=== PATIENT | female | born 1945 | race Caucasian/White ===

== ENCOUNTER → 2016-11-27 | Outpatient (REF) | LOC: ZLAB.WCH 11:18 | DX: Z01.89 Encounter for other specified special examinations (principal) ==

== ENCOUNTER → 2016-12-06 | Outpatient (REF) | LOC: ZLAB.WCH 15:16 | DX: Z01.89 Encounter for other specified special examinations (principal) ==

== ENCOUNTER → 2017-02-05 | Outpatient (REF) | LOC: ZLAB.WCH 14:52 | DX: Z01.89 Encounter for other specified special examinations (principal) ==

== ENCOUNTER → 2017-07-01 | Outpatient (REF) | LOC: ZLAB.WCH 15:48 | DX: Z01.89 Encounter for other specified special examinations (principal) ==

== ENCOUNTER → 2019-04-12 | Outpatient (CLI) | payer MEDICARE, BC | LOC: COL.RAD 08:19 | DX: I65.23 Occlusion and stenosis of bilateral carotid arteries (principal); R91.1 Solitary pulmonary nodule; M47.812 Spondylosis without myelopathy or radiculopathy, cervical region; I67.89 Other cerebrovascular disease | CPT/HCPCS: Q9967 ==